=== PATIENT | female | born 2000 | race African-American/Black ===

== ENCOUNTER 2021-02-21 08:07 | Outpatient (CLI) | payer OTHER ==
[2021-02-21 21:24] LABS: BACTERIAL VAGINOSIS DNA NEGATIVE (NEGATIVE); CANDIDA GLABRATA DNA NEGATIVE (NEGATIVE); CANDIDA GROUP DNA POSITIVE (NEGATIVE); CANDIDA KRUSEI DNA NEGATIVE (NEGATIVE); TRICHOMONAS VAGINALIS DNA NEGATIVE (NEGATIVE)
== END 2021-02-21 23:59 | disposition home or self-care (01) ==
LOC: LAB.N 08:07
PROVIDERS: ATTEND Physician Assistant Medical
DX: N76.0 Acute vaginitis (principal)
CPT/HCPCS: 87086; 87661; 87801